=== PATIENT | male | born 1940 | race African-American/Black ===

== ENCOUNTER 2016-12-27 11:32 | Emergency (ER) | payer OTHER ==
[~2016-12-27] VITALS: Ht 170.2 cm; Wt 95.3 kg
--- NOTE | ~2016-12-27 | EKG ---
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
[~2016-12-27 11:32] MED LIST: ADULT LOW DOSE81 MG PO; ALDACTONE50 MG PO; AMBIEN 10 MG TA10 MG PO; AMLODIPINE BESY10 MG; BENTYL 10 MG CA10 MG; CARVEDILOL6.25 MG PO; CHLORTHALIDONE25 MG PO; CRESTOR20 MG; DEMADEX20 MG PO; DEXILANT30 MG PO; HYDRALAZINE 2525 M1 PO; LIPITOR 20 MG T20 M1 PO; LISINOPRIL20 MG PO; LYRICA 50 MG50 MG PO; LYRICA100 MG PO; MORPHINE SULFAT15 M3 PO; MS CONTIN15 MG PO; NORVASC10 MG PO; OXYCODONE HCL 55 MG PO
[2016-12-27 12:16] LABS: ABSOLUTE NEUTROPHILS 1.5 thou/uL (1.4-8.2); BASOPHILS 0.6 % (0.0-2.0); EOSINOPHILS 3.3 % (0.0-3.0); HEMATOCRIT 41.5 % (42.0-52.0); HEMOGLOBIN 14.6 gm/dL (14.0-18.0); LYMPHOCYTES 47.9 % (24.0-44.0); MANUAL DIFF NO; MCH 27.6 pg (26.0-34.0); MCHC 35.2 g/dL (28.0-37.0); MCV 78.4 fL (80.0-100.0); MONOCYTES 10.8 % (1.0-8.0); PLATELET COUNT 124 thou/uL (150-400); POLYS 37.4 % (36.0-66.0); RBC 5.29 mil/uL (4.50-6.00); RDW 15.8 % (10.5-14.5)
[2016-12-27 12:23] LABS: CALCIUM 8.9 mg/dL (8.5-10.1); CREATININE 2.1 mg/dL (0.6-1.3); POTASSIUM 4.5 mmol/L (3.5-5.1)
[2016-12-27 12:42] LABS: URINE BILIRUBIN NEGATIVE (Negative); URINE BLOOD NEGATIVE (Negative); URINE COLOR YELLOW; URINE GLUCOSE-RANDOM* NEGATIVE (Negative); URINE KETONES NEGATIVE (Negative); URINE NITRITE NEGATIVE (Negative); URINE PROTEIN (DIPSTICK) NEGATIVE (Negative); URINE UROBILINOGEN 0.2 E.U./dl (0.2-1.0)
[2016-12-27] MEDS ORDERED: MYRBETRIQ25 MG PO (13:44)
[2016-12-27] MEDS ORDERED: CATAPRES0.2 MG PO (13:47)
== END 2016-12-27 13:50 | disposition home or self-care (01) ==
LOC: ER 11:32
PROVIDERS: Emergency Medicine
DX: R41.0 Disorientation, unspecified (principal); F03.90 Unspecified dementia, unspecified severity, without behavioral disturbance, psychotic disturbance, mood disturbance, and anxiety; I10 Essential (primary) hypertension; E78.5 Hyperlipidemia, unspecified; G89.29 Other chronic pain; Z96.651 Presence of right artificial knee joint; F10.99 Alcohol use, unspecified with unspecified alcohol-induced disorder

== ENCOUNTER → 2018-09-25 | Outpatient (CLI) | payer OTHER ==
[~2018-09-25] MED LIST changes: +CATAPRES0.2 MG PO; +MYRBETRIQ25 MG PO
--- NOTE | ~2018-09-25 | 2DMMODE ---
[facility] [place] [address] 2 D/M-MODE ECHOCARDIOGRAM Name: LEVON HILL Room #: REG [facility]#: [id number] Admission: 09/25/18 Attend Phys: Jarvis Bishop MD Discharge: Date of : 40 Date of Service: 09/25/18 0925 Report #: [id number] THIS REPORT FOR: //name// APPROVED REPORT Study performed: 09/25/2018 08:09:14 EXAM: Comprehensive 2D, Doppler, and color-flow Echocardiogram Patient Location: Out-Patient Status: routine BSA: 2.10 HR: 52 bpm BP: 160/90 mmHg Rhythm: Sinus arrhythmia Other Information Study Quality: Adequate Indications HTN, SOB 2D Dimensions RVDd: 41.63 mm IVSd: 11.06 (7-11mm) LVOT Diam: 20.86 (18-24mm) LVDd: 51.87 mm PWd: 10.73 (7-11mm) Ascending Ao: 29.80 (22-36mm) LVDs: 33.42 (25-40mm) Aortic Root: 30.93 mm Volumes Left Atrial Volume (Systole) Single Plane 4CH: 37.68 mL Single Plane 2CH: 53.02 mL LA ESV Index: 23.00 mL/m2 Aortic Valve AoV Peak Edgar.: 2.29 m/s AO Peak Gr.: 20.98 mmHg LVOT Max P.73 mmHg AO Mean Gr.: 10.14 mmHg AO V2 Mean: 1.51 m/s LVOT Max V: 1.20 m/s AO V2 VTI: 54.52 cm TENZIN Vmax: 1.79 cm2 Mitral Valve E/A Ratio: 0.8 [facility] [address] [place] [address] 2 D/M-MODE ECHOCARDIOGRAM Name: LEVON HILL Room #: [facility]#: [id number] Admission: 09/25/18 Attend Phys: Jarvis Bishop MD Discharge: Date of : 40 Date of Service: 09/25/18 0925 Report #: [id number] MV Decel. Time: 213.05 ms MV E Max Edgar.: 0.78 m/s MV A Edgar.: 0.98 m/s MV PHT: 61.78 ms IVRT: 73.82 ms Pulmonary Valve PV Peak Edgar.: 1.19 m/s PV Peak Gr.: 5.69 mmHg Tricuspid Valve TR Peak Edgar.: 1.97 m/s RAP Estimate: 5.00 mmHg TR Peak Gr.: 15.56 mmHg PA Pressure: 21.00 mmHg Left Ventricle The left ventricle is normal size. There is normal left ventricular wall thickness. Left ventricular systolic function is normal. LVEF is 55-60%. Mild diastolic dysfunction is present (impaired relaxation pattern). Right Ventricle The right ventricle is normal size. The right ventricular systolic function is normal. Atria The left atrium size is normal. The right atrium size is normal. Aortic Valve Aortic valve is mildly calcified. Trace aortic regurgitation. There is mild valvular aortic stenosis. Calculated aortic valve area is 1.8 cm2 with maximum pressure gradient of 21 mmHg and mean pressure gradient of 10 mmHg. Mitral Valve The mitral valve is normal in structure. Trace mitral regurgitation. Tricuspid Valve The tricuspid valve is normal in structure. Trace tricuspid regurgitation. Estimated PAP is 20-25mmHg. Pulmonic Valve The pulmonary valve is normal in structure. Trace pulmonic regurgitation. [facility] [address] [place] [address] 2 D/M-MODE ECHOCARDIOGRAM Name: LEVON HILL Room #: [facility]#: [id number] Admission: 09/25/18 Attend Phys: Jarvis Bishop MD Discharge: Date of : 40 Date of Service: 09/25/18 0925 Report #: [id number] Great Vessels The aortic root is normal in size. The ascending aorta is normal in size. IVC is normal in size and collapses >50% with inspiration. Pericardium There is no pericardial effusion. <Conclusion> The left ventricle is normal size. LVEF is 55-60%. Aortic valve is mildly calcified. Trace aortic regurgitation. There is mild valvular aortic stenosis. Calculated aortic valve area is 1.8 cm2 with maximum pressure gradient of 21 mmHg and mean pressure gradient of 10 mmHg. The mitral valve is normal in structure. Trace mitral regurgitation. The tricuspid valve is normal in structure. Trace tricuspid regurgitation. Estimated PAP is 20-25mmHg. The pulmonary valve is normal in structure. Trace pulmonic regurgitation. There is no pericardial effusion. <ELECTRONICALLY SIGNED> By: Chris Holloway MD 09/25/18924 4 4 Chris Holloway MD /INF
== END ==
LOC: ULTRA 07:05
DX: I10 Essential (primary) hypertension (principal); I35.8 Other nonrheumatic aortic valve disorders; I35.0 Nonrheumatic aortic (valve) stenosis

== ENCOUNTER → 2018-10-02 | Outpatient (CLI) | payer OTHER | LOC: NUC 07:42 | DX: J98.6 Disorders of diaphragm (principal); I10 Essential (primary) hypertension ==